=== PATIENT | female | born 2000 | race Caucasian/White ===

== ENCOUNTER 2022-02-12 21:16 | Day surgery (SDC) | payer BC ==
[2022-02-12 21:47] VITALS: BMI 32.8
[2022-02-12] MEDS ORDERED: hydrALAZINE 20 MG/ML VIAL SLOW IVP PRN (22:23)
[2022-02-12] MEDS ORDERED: Lidocaine 2% Viscous Solution 10 ML, Aluminum & Magnesium Hydroxide 30 ML SSW SCH (22:30)
[2022-02-12 23:29] LABS: #Monocytes 0.7 10x3/uL (0.0-1.1); #Neutrophils 9.3 10x3/uL (1.5-8.4); %Basophils 0.2 % (0.0-2.0); %Eosinophils 0.3 % (0.0-6.0); %Lymphocytes 15.9 % (18.0-47.0); %Monocytes 6.2 % (0.0-10.0); Hemoglobin 10.3 g/dL (12.0-15.5); Mean Corpuscular HGB CONC 33.2 g/dL (32.0-36.0); Mean Corpuscular Hemoglobin 28.3 pg (27.0-33.0); Mean Corpuscular Volume 85.2 fl (81.6-98.3); Mean Platelet Volume 13.2 fl (7.4-10.4); Platelet Count 174 10x3/uL (150-450); RBC Distribution Width 13.3 % (11.5-14.5); Red Blood Cell (RBC) Count 3.64 10x6/uL (3.90-5.03)
[2022-02-12 23:39] LABS: ALT (SGPT) 9 U/L (8-55); AST (SGOT) 15 U/L (5-34); Albumin 3.2 g/dL (3.5-5.0); Alkaline Phosphatase 220 U/L (40-110); Anion Gap 13 mmol/L (10-20); BUN (Urea Nitrogen) 4 mg/dL (7.0-18.7); Bilirubin, Total 0.3 mg/dL (0.2-1.2); Calc. Creatinine Clearance 202 mL/min (70-130); Calcium 9.3 mg/dL (7.8-10.44); Carbon Dioxide 22 mmol/L (22-29); Chloride 105 mmol/L (98-107); Globulin 3.1 g/dL (2.4-3.5); Glucose 84 mg/dL (70-105); Protein, Total 6.3 g/dL (6.0-8.3); Sodium 137 mmol/L (136-145)
[2022-02-13 00:15] LABS: FFN Internal QC Analyzer PASS (PASS); FFN Internal QC Cassette PASS (PASS); Fetal Fibronectin Negative (Negative)
[2022-02-13] MEDS ORDERED: Ondansetron PF 4 MG/2 ML Vial IVP SCH (01:45)
[2022-02-13] MEDS ORDERED: Potassium Chloride 20 MEQ TAB PO SCH (02:00)
[2022-02-13] MEDS ORDERED: Acetaminophen 325 MG TAB PO PRN (05:32)
[2022-02-13] MEDS ORDERED: Naloxone HCl 0.4 mg/ml Vial IVP PRN ×2 (05:32)
[2022-02-13] MEDS ORDERED: Lactated Ringer's 500 ML IV PRN (05:32)
[2022-02-13] MEDS ORDERED: Ondansetron PF 4 MG/2 ML Vial IVP PRN (05:32)
[2022-02-13] MEDS ORDERED: ePHEDrine Sulfate 50 MG/10 ML VIAL SLOW IVP PRN (05:32)
[2022-02-13] MEDS ORDERED: Promethazine HCl 25 MG/ML VIAL IM PRN (05:32)
[2022-02-13] MEDS ORDERED: Hydrocerin (Eucerin) Cream 120 gm Jar TOP PRN (05:32)
[2022-02-13] MEDS ORDERED: diphenhydrAMINE 50 MG/ML VIAL IVP PRN (05:32)
[2022-02-13] MEDS ORDERED: Fentanyl 2 mcg/Bupivacaine 0.1% Cassette 100 ML EPIDURAL SCH (05:45)
[2022-02-13] MEDS ORDERED: Communication Order-Pharmacy FS SCH (05:45)
== END 2022-02-13 01:40 | disposition home or self-care (01) ==
LOC: CSHLD/OP 21:16
PROVIDERS: ATTEND Obstetrics & Gynecology
DX: O99.891 Other specified diseases and conditions complicating pregnancy (principal); R10.10 Upper abdominal pain, unspecified; M54.50 Low back pain, unspecified; N13.30 Unspecified hydronephrosis; O99.283 Endocrine, nutritional and metabolic diseases complicating pregnancy, third trimester; E87.6 Hypokalemia; Z3A.34 34 weeks gestation of pregnancy
CPT/HCPCS: 76705; 80053; 82731; 85025

== ENCOUNTER 2022-02-25 13:51 | Day surgery (SDC) | payer BC, OTHER ==
[2022-02-25] MEDS ORDERED: hydrALAZINE 20 MG/ML VIAL SLOW IVP PRN (15:41)
[2022-02-25 16:26] LABS: #Monocytes 0.5 10x3/uL (0.0-1.1); #Neutrophils 6.9 10x3/uL (1.5-8.4); %Basophils 0.1 % (0.0-2.0); %Eosinophils 0.4 % (0.0-6.0); %Lymphocytes 16.3 % (18.0-47.0); %Monocytes 5.8 % (0.0-10.0); %Neutrophils 77.2 % (40.0-75.0); Hemoglobin 9.8 g/dL (12.0-15.5); Mean Corpuscular HGB CONC 31.9 g/dL (32.0-36.0); Mean Corpuscular Hemoglobin 27.8 pg (27.0-33.0); Mean Platelet Volume 13.7 fl (7.4-10.4); Platelet Count 136 10x3/uL (150-450); RBC Distribution Width 13.9 % (11.5-14.5); Red Blood Cell (RBC) Count 3.53 10x6/uL (3.90-5.03); White Blood Cell (WBC) Count 8.9 10x3/uL (3.5-10.5)
[2022-02-25 16:36] LABS: ALT (SGPT) 10 U/L (8-55); AST (SGOT) 19 U/L (5-34); Alkaline Phosphatase 222 U/L (40-110); Anion Gap 14 mmol/L (10-20); BUN (Urea Nitrogen) 5 mg/dL (7.0-18.7); Bilirubin, Total 0.5 mg/dL (0.2-1.2); Calc. Creatinine Clearance 0 mL/min (70-130); Calcium 8.6 mg/dL (7.8-10.44); Carbon Dioxide 22 mmol/L (22-29); Chloride 107 mmol/L (98-107); Glucose 78 mg/dL (70-105); Potassium 3.3 mmol/L (3.5-5.1); Sodium 140 mmol/L (136-145)
[2022-02-25 16:45] LABS: Creatinine, Urine 48.13 mg/dL (47-110)
== END 2022-02-25 18:40 | disposition home health service (06) ==
LOC: CSHLD/OP 13:51
PROVIDERS: ATTEND Obstetrics & Gynecology
DX: O13.3 Gestational [pregnancy-induced] hypertension without significant proteinuria, third trimester (principal); Z3A.36 36 weeks gestation of pregnancy
CPT/HCPCS: 36415; 80053; 82570; 84156; 85025; 87081; 99283

== ENCOUNTER 2022-02-26 17:29 | Inpatient (IN) | payer BC, OTHER ==
[~2022-02-26 17:29] MED LIST: Bupivacaine 0.25% HCL 30 ML VIAL ONE; Bupivacaine/Epinephrine 0.25% 30 ML VIAL ONE; Lidocaine 2% 10 ML INJ ONE
[2022-02-26 17:49] VITALS: BMI 34.5
[2022-02-26] MEDS ORDERED: Ondansetron PF 4 MG/2 ML Vial IVP PRN (21:56)
[2022-02-26] MEDS ORDERED: Promethazine HCl 25 MG/ML VIAL IM PRN (21:56)
[2022-02-26] MEDS ORDERED: Lidocaine 1% (PF) 30 ML VIAL SC PRN (21:56)
[2022-02-26] MEDS ORDERED: Butorphanol Tartrate 1 MG/ML VIAL SLOW IVP PRN (21:56)
[2022-02-26] MEDS ORDERED: Ibuprofen 800 MG TAB PO PRN (21:56)
[2022-02-26] MEDS ORDERED: hydrALAZINE 20 MG/ML VIAL SLOW IVP PRN (21:56)
[2022-02-26] MEDS ORDERED: HYDROcodone/Acetaminophen 5/325 mg Tablet PO PRN ×2 (21:56)
[2022-02-26] MEDS ORDERED: Misoprostol 100 MCG TAB VAG SCH (22:00)
[2022-02-26] MEDS ORDERED: Lactated Ringer's 1,000 ML IV SCH (23:00)
[2022-02-26] MEDS ORDERED: NS w/ Oxytocin 30 units 500 ML IV SCH ×2 (23:00)
[2022-02-26 23:10] LABS: Hemoglobin 9.8 g/dL (12.0-15.5); Mean Corpuscular HGB CONC 32.6 g/dL (32.0-36.0); Mean Corpuscular Hemoglobin 27.8 pg (27.0-33.0); Mean Corpuscular Volume 85.5 fl (81.6-98.3); Mean Platelet Volume 14.1 fl (7.4-10.4); RBC Distribution Width 13.9 % (11.5-14.5); Red Blood Cell (RBC) Count 3.52 10x6/uL (3.90-5.03)
[2022-02-26 23:11] LABS: Platelet Count 172 10x3/uL (150-450)
[2022-02-26 23:33] LABS: ALT (SGPT) 8 U/L (8-55); AST (SGOT) 17 U/L (5-34); Albumin 3.2 g/dL (3.5-5.0); Alkaline Phosphatase 222 U/L (40-110); Anion Gap 14 mmol/L (10-20); BUN (Urea Nitrogen) 6 mg/dL (7.0-18.7); Bilirubin, Total 0.4 mg/dL (0.2-1.2); Calc. Creatinine Clearance 220 mL/min (70-130); Calcium 8.5 mg/dL (7.8-10.44); Carbon Dioxide 21 mmol/L (22-29); Chloride 106 mmol/L (98-107); Globulin 2.7 g/dL (2.4-3.5); Glucose 69 mg/dL (70-105); Potassium 3.6 mmol/L (3.5-5.1); Protein, Total 5.9 g/dL (6.0-8.3); Sodium 137 mmol/L (136-145)
[2022-02-26 23:53] LABS: Hep B Surf Ag Non-Reactive S/CO (NonReactive); Syphilis Antibody Nonreactive (Nonreactive); Syphilis Antibody Index 0.03 S/CO (<1.00 Non-Reactive)
[2022-02-26 23:58] LABS: HBSAg Index 0.17 S/CO (0-0.99)
[2022-02-27 00:04] LABS: SARS-CoV-2 NAA Rapid Test Not Detected (NotDetected)
[2022-02-27] MEDS: Misoprostol 100 MCG TAB VAG SCH (06:39)
[2022-02-27] MEDS ORDERED: Fentanyl 2 mcg/Bup 0.1% Cadd 100 ML ONE (09:41)
[2022-02-27] MEDS ORDERED: Promethazine HCl 25 MG/ML VIAL IM PRN (10:33)
[2022-02-27] MEDS ORDERED: Acetaminophen 325 MG TAB PO PRN (10:33)
[2022-02-27] MEDS ORDERED: Naloxone HCl 0.4 mg/ml Vial IVP PRN ×2 (10:33)
[2022-02-27] MEDS ORDERED: ePHEDrine Sulfate 50 MG/10 ML VIAL SLOW IVP PRN (10:33)
[2022-02-27] MEDS ORDERED: Ondansetron PF 4 MG/2 ML Vial IVP PRN (10:33)
[2022-02-27] MEDS ORDERED: diphenhydrAMINE 50 MG/ML VIAL IVP PRN (10:33)
[2022-02-27] MEDS ORDERED: Moisturizing Cream (Eucerin) 113 GM JAR TOP PRN (10:33)
[2022-02-27] MEDS ORDERED: Lactated Ringer's 500 ML IV PRN (10:33)
[2022-02-27] MEDS ORDERED: Communication Order-Pharmacy FS SCH (10:45)
[2022-02-27] MEDS: Fentanyl 2 mcg/Bupivacaine 0.1% Cassette 100 ML EPIDURAL SCH ×2 (17:23→23:58)
[2022-02-28] MEDS ORDERED: Misoprostol 200 MCG TAB ONE (04:43)
[2022-02-28] MEDS ORDERED: Azithromycin 500 MG VIAL ONE (04:44)
[2022-02-28] MEDS ORDERED: ceFAZolin 2 GM/Dextrose 50 ML IVPB ONE (04:44)
[2022-02-28] MEDS ORDERED: Oxytocin 10 UNITS/ML VIAL ONE (04:45)
[2022-02-28] MEDS ORDERED: Morphine PF 10 MG/10 ML VIAL ONE (04:45)
[2022-02-28] MEDS ORDERED: Famotidine/PF 20 mg/2ml Vial ONE (04:55)
[2022-02-28] MEDS ORDERED: Famotidine/PF 20 mg/2ml Vial SLOW IVP PRN (05:10)
[2022-02-28] MEDS ORDERED: ceFAZolin 2 GM/Dextrose 50 ML 2 GM in Premix Bag 1 BAG IVPB SCH (05:15)
[2022-02-28] MEDS ORDERED: Azithromycin 500 MG in Sodium Chloride 0.9% 250 ML 250 ML IVPB SCH (05:15)
[2022-02-28] MEDS ORDERED: Ondansetron PF 4 MG/2 ML Vial ONE (05:32)
[2022-02-28] MEDS ORDERED: Moisturizing Cream (Eucerin) 113 GM JAR TOP PRN (05:59)
[2022-02-28] MEDS ORDERED: Naloxone HCl 0.4 mg/ml Vial IVP PRN ×2 (05:59)
[2022-02-28] MEDS ORDERED: diphenhydrAMINE 50 MG/ML VIAL IVP PRN (05:59)
[2022-02-28] MEDS ORDERED: Fentanyl 100 MCG/2 ML VIAL SLOW IVP PRN (05:59)
[2022-02-28] MEDS ORDERED: Ketorolac Tromethamine 30 MG/ML VIAL IVP PRN (05:59)
[2022-02-28] MEDS ORDERED: Ondansetron PF 4 MG/2 ML Vial IVP PRN ×2 (05:59→10:12)
[2022-02-28] MEDS ORDERED: Promethazine HCl 25 MG SUPP PR PRN (05:59)
[2022-02-28] MEDS ORDERED: Naloxone HCl 0.4 mg/ml Vial IV PRN (05:59)
[2022-02-28] MEDS ORDERED: Meperidine HCl/PF 25 MG/ML VIAL SLOW IVP PRN (05:59)
[2022-02-28] MEDS ORDERED: Promethazine HCl 25 MG/ML VIAL IM PRN (05:59)
[2022-02-28] MEDS ORDERED: Ondansetron HCl/PF 4 MG/2 ML Vial IVP PRN (05:59)
[2022-02-28] MEDS ORDERED: Ketorolac Tromethamine 30 MG/ML VIAL IVP SCH (06:00)
[2022-02-28] MEDS ORDERED: Communication Order-Pharmacy FS SCH (06:00)
[2022-02-28] MEDS ORDERED: Boostrix 0.5 ML (Tdap) VIAL IM ONE (10:12)
[2022-02-28] MEDS ORDERED: hydrALAZINE 20 MG/ML VIAL SLOW IVP PRN (10:12)
[2022-02-28] MEDS ORDERED: Bisacodyl 10 MG SUPP PR PRN (10:12)
[2022-02-28] MEDS ORDERED: NS w/ Oxytocin 30 units 500 ML IV SCH (10:12)
[2022-02-28] MEDS ORDERED: Simethicone Chewable 80 MG TAB PO PRN (10:12)
[2022-02-28 12:25] LABS: GC by PCR Not Detected (NotDetected)
[2022-02-28] MEDS ORDERED: NIFEdipine XL 30 MG TAB PO SCH (12:30)
[2022-02-28] MEDS: Lanolin Ointment 7 GM TUBE TOP PRN (12:33)
[2022-02-28 13:32] LABS: HIV (1/2) Antibody/Antigen Non-Reactive (NonReactive); HIV 1/2 INDEX 0.09 S/CO (<1.00)
[2022-02-28] MEDS: Prenatal Vitamin 1 TAB PO SCH (16:26)
[2022-02-28] MEDS: Ferrous Sulfate 325 MG TAB PO SCH (16:26)
[2022-02-28] MEDS: Docusate 100 MG CAP PO SCH (16:26)
[2022-02-28] MEDS: Misoprostol 100 MCG TAB VAG SCH ×2 (16:26→16:27)
[2022-02-28] MEDS: HYDROcodone/Acetaminophen 5/325 mg Tablet PO PRN (19:17)
[2022-02-28] MEDS ORDERED: Zolpidem Tartrate 5 MG TAB PO PRN (21:00)
[2022-03-01] MEDS: Docusate 100 MG CAP PO SCH ×3 (00:02→21:39)
[2022-03-01] MEDS: Ferrous Sulfate 325 MG TAB PO SCH ×3 (00:02→21:39)
[2022-03-01 03:50] LABS: Hemoglobin 8.3 g/dL (12.0-15.5); Mean Corpuscular HGB CONC 32.2 g/dL (32.0-36.0); Mean Corpuscular Hemoglobin 27.7 pg (27.0-33.0); Mean Platelet Volume 13.6 fl (7.4-10.4); Platelet Count 110 10x3/uL (150-450); RBC Distribution Width 14.5 % (11.5-14.5); White Blood Cell (WBC) Count 12.4 10x3/uL (3.5-10.5)
[2022-03-01] MEDS: HYDROcodone/Acetaminophen 5/325 mg Tablet PO PRN ×4 (04:09→21:39)
[2022-03-01] MEDS: Prenatal Vitamin 1 TAB PO SCH (10:10)
[2022-03-01] MEDS: NIFEdipine XL 30 MG TAB PO SCH (10:10)
[2022-03-01] MEDS: Ibuprofen 800 MG TAB PO SCH ×2 (13:00→21:39)
[2022-03-01] MEDS: diphenhydrAMINE 25 MG CAP PO PRN (18:35)
[2022-03-02] MEDS: diphenhydrAMINE 25 MG CAP PO PRN ×3 (01:19→23:34)
[2022-03-02] MEDS: Ibuprofen 800 MG TAB PO SCH ×3 (05:19→21:56)
[2022-03-02] MEDS: HYDROcodone/Acetaminophen 5/325 mg Tablet PO PRN ×2 (05:19→13:47)
[2022-03-02] MEDS: Docusate 100 MG CAP PO SCH ×2 (09:17→21:56)
[2022-03-02] MEDS: Ferrous Sulfate 325 MG TAB PO SCH ×2 (09:17→21:56)
[2022-03-02] MEDS: NIFEdipine XL 30 MG TAB PO SCH (09:18)
[2022-03-02] MEDS: Prenatal Vitamin 1 TAB PO SCH (09:19)
[2022-03-02] MEDS: Lanolin Ointment 7 GM TUBE TOP PRN (09:21)
[2022-03-03] MEDS: Ibuprofen 800 MG TAB PO SCH (05:41)
[2022-03-03] MEDS: NIFEdipine XL 30 MG TAB PO SCH (07:55)
[2022-03-03] MEDS: Prenatal Vitamin 1 TAB PO SCH (07:56)
[2022-03-03] MEDS: Ferrous Sulfate 325 MG TAB PO SCH (07:56)
[2022-03-03] MEDS: Docusate 100 MG CAP PO SCH (07:56)
[2022-03-03] MEDS: diphenhydrAMINE 25 MG CAP PO PRN (08:04)
[2022-03-03] MEDS ORDERED: predniSONE 20 MG TAB PO SCH (08:15)
[2022-03-03 11:20] VITALS: BP 126/80; TEMP 97.8
== END 2022-03-03 14:00 | disposition home or self-care (01) | DRG 788 ==
LOC: CSHLD/OP 17:29 → CSHLD 22:21 → CSHPP 02-28 15:45
PROVIDERS: ADMIT Obstetrics & Gynecology; ATTEND Obstetrics & Gynecology
PROC: 10D00Z1 Extraction of Products of Conception, Low, Open Approach (ICD-10-PCS; principal; 2022-02-28)
PROC: 10H07YZ Insertion of Other Device into Products of Conception, Via Natural or Artificial Opening (ICD-10-PCS; 2022-02-28)
PROC: 10907ZC Drainage of Amniotic Fluid, Therapeutic from Products of Conception, Via Natural or Artificial Opening (ICD-10-PCS; 2022-02-28)
PROC: 3E033VJ Introduction of Other Hormone into Peripheral Vein, Percutaneous Approach (ICD-10-PCS; 2022-02-28)
DX: O13.4 Gestational [pregnancy-induced] hypertension without significant proteinuria, complicating childbirth (principal); Z3A.37 37 weeks gestation of pregnancy; Z37.0 Single live birth; O32.8XX0 Maternal care for other malpresentation of fetus, not applicable or unspecified; O99.02 Anemia complicating childbirth; D64.9 Anemia, unspecified; O99.72 Diseases of the skin and subcutaneous tissue complicating childbirth; L29.9 Pruritus, unspecified; Z20.822 Contact with and (suspected) exposure to COVID-19; O61.0 Failed medical induction of labor
CPT/HCPCS: 36415; 51702; 80053; 85027; 86780; 86850; 86900; 86901; 87340; 87389; 87591; 88307; 99285; J0360; J0595; J0690; J1200; J1885; J2274; J2310; J2405; J2590; J7512; S0020; S0028; U0002